=== PATIENT | male | born 1985 | race Caucasian/White ===

== ENCOUNTER 2017-07-20 06:03 | Day surgery (SDC) | payer BC ==
[~2017-07-20 06:03] MED LIST: Buffered Lidocaine 0.9% SYRIN* 5 ML/SYR SYRINGE INTRADERM ONE; Famotidine IV* 10 MG/ML 2 ML (20 mg) IV ONE; Metoclopramide TAB* 10 MG PO ONE
[2017-07-20] MEDS ORDERED: Metoclopramide TAB* 10 MG ONE (06:24)
[2017-07-20] MEDS ORDERED: Buffered Lidocaine 0.9% SYRIN* 5 ML/SYR SYRINGE ONE (06:24)
[2017-07-20] MEDS ORDERED: Famotidine IV* 10 MG/ML 2 ML (20 mg) ONE (06:24)
[2017-07-20] MEDS ORDERED: Methylene Blue 0.5 %* 50 MG/10 ML AMP IV ONE (07:16)
[2017-07-20] MEDS ORDERED: fentaNYL* 50 MCG/ML 2 ML VIAL (100 MCG VIAL) ONE ×2 (07:20→09:06)
[2017-07-20] MEDS ORDERED: Midazolam* 1 MG/ML 5 ML VIAL (5 MG) ONE (07:20)
[2017-07-20] MEDS ORDERED: Mivacurium Chloride* 20 MG/10 ML VIAL IV ONE (07:20)
[2017-07-20] MEDS ORDERED: Dexamethasone IV* 4 MG/ML 1 ML (4 MG) ONE (07:20)
[2017-07-20] MEDS ORDERED: KETAMINE HCL* 50 MG/ML 10 ML VIAL ONE (07:20)
[2017-07-20] MEDS ORDERED: Ketorolac INJ* 30 MG/ML 1 ML VIAL ONE (07:20)
[2017-07-20] MEDS ORDERED: Lidocaine 2% PF * 5 ML VIAL ONE (07:20)
[2017-07-20] MEDS ORDERED: Ondansetron INJ* 2 MG/ML VIAL ONE (07:20)
[2017-07-20] MEDS ORDERED: Propofol* 10 MG/ML 20 ML BTL IV PUSH ONE (07:20)
[2017-07-20] MEDS ORDERED: fentaNYL* 50 MCG/ML 2 ML VIAL (100 MCG VIAL) IV PRN (09:18)
[2017-07-20] MEDS ORDERED: HYDROmorphone INJ* 1 MG/ML CARPUJECT SYRINGE IV PRN (09:18)
[2017-07-20] MEDS ORDERED: Ondansetron INJ* 2 MG/ML VIAL IV PRN (09:18)
[2017-07-20] MEDS ORDERED: oxyCODONE/Acetamin 5/325 MG* TAB PO PRN (09:18)
[2017-07-20] MEDS ORDERED: Bacitracin OINTMENT* 1 TUBE ONE (09:56)
[2017-07-20] MEDS ORDERED: oxyCODONE/Acetamin 5/325 MG* TAB ONE (10:54)
[2017-07-20 12:01] VITALS: BP 124/84
--- NOTE | 2017-07-20 13:08 | OP ---
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 OPERATIVE PROCEDURE: Left superficial parotidectomy, preservation of facial nerve, and excision of skin involvement. 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 DESCRIPTION OF PROCEDURE: The patient was taken to the operating room, general anesthetic was given, the patient was intubated. Mazin type incision was created. NIM monitoring was utilized. Careful tunneling was carried out and parotid tissue was elevated off the sternocleidomastoid muscle of the stylomastoid region as well as the tragus. The exit of the facial nerve was then added and in fact careful tunneling was carried out following the course of the nerve quite far distally. It was obvious that when we had elevated the Mazin incision and skin flap, there was involvement of skin and ellipse of the skin approximately 3 cm x [address] in place attached to the tumor. Careful tunneling was carried out with bipolar and sharp dissection. The superficial parotid tumor was removed along with the skin ellipse. The skin ellipse was then kept, flaps were advanced, and the wound was closed and then the Mazin incision was closed in 2 layers. Small Israel drain was applied. Testing of the facial nerve intraoperatively showed both the superior and inferior branches functioning with stimulation. Small dressing was applied. The patient was awakened and sent to the recovery room in stable condition. Instrument and sponge count correct. Blood loss approximately 50 mL. [id number]/[facility] #: [id number] MTDD
== END 2017-07-20 11:58 | disposition home or self-care (01) ==
LOC: OR 06:03
PROVIDERS: ATTEND Otolaryngology
DX: D11.0 Benign neoplasm of parotid gland (principal); Z87.891 Personal history of nicotine dependence; F41.8 Other specified anxiety disorders
CPT/HCPCS: 88307; A9270-GY; C1776; J1100; J1885; J2250; J2405; J2704; J3010